=== PATIENT | female | born 1960 | race Caucasian/White ===

== ENCOUNTER → 2024-08-10 | Outpatient (CLI) | payer MEDICAID, SELFPAY ==
--- NOTE | 2024-08-10 08:45 | XR_ITS ---
Examination: Screening digital mammography, bilateral Computer aided detection 3-D breast Tomosynthesis, bilateral Date and time of exam: August 10, 2024 at 0834 hours Compared to mammograms dating to 01/17/2013 Indication: Screening Technique: Nonmagnified MLO, CC views of the breasts to been obtained, reconstructed from 3-D Tomosynthesis images. R2 computer aided detection program utilized for evaluation of suspicious masses and/or abnormal calcifications. 3-D Tomosynthesis images obtained. Findings: Scattered areas of fibroglandular density 3 mm circumscribed nodule outer left breast probably benign Impression: BI-RADS Category 3: Probably benign findings One additional 6 month left mammogram follow-up is needed to document stability of 3 mm nodule upper left breast
== END | disposition home or self-care (01) ==
LOC: CDIM 08:26
PROVIDERS: Referring Provider Physician Assistant; Visit Provider Physician Assistant
DX: Z12.31 Encounter for screening mammogram for malignant neoplasm of breast (principal); R92.333 Mammographic heterogeneous density, bilateral breasts; N63.21 Unspecified lump in the left breast, upper outer quadrant
CPT/HCPCS: 77063; 77067

== ENCOUNTER → 2024-12-17 | Outpatient (CLI) | payer MEDICAID, SELFPAY ==
--- NOTE | 2024-12-17 09:00 | XR_ITS ---
Examination: Gastrografin enema with KUB Fluoroscopy 28 spot fluoroscopic films of the colon Date and time: December 17, 2024 0913 hours INDICATIONS: Left-sided abdominal pain and bloating beginning one year ago TECHNIQUE AND FINDINGS: Colon filled in retrograde manner to the cecum without reflux into the terminal ileum Mild stool is present throughout the colon Scattered diverticula in the sigmoid colon No diverticulitis No constricting colonic lesion No rectal or other ulcerations Evacuation is partial mucosal detail processes satisfactory IMPRESSION: Mild stool is present throughout the colon No constricting colonic lesion
== END | disposition home or self-care (01) ==
PROVIDERS: PCP Physician Assistant; Referring Provider Surgery; Visit Provider Surgery
DX: K59.00 Constipation, unspecified (principal)
CPT/HCPCS: 74280

== ENCOUNTER → 2025-02-26 | Outpatient (CLI) | payer MEDICAID, SELFPAY ==
--- NOTE | 2025-02-26 13:00 | XR_ITS ---
Examination: Breast ultrasound, unilateral, left complete Date and time of exam: February 26, 2025, 1311 hours INDICATIONS: 3 mm nodule upper left breast on mammogram August 10, 2024 Technique: Real-time sams scale ultrasonographic imaging performed left breast including all 4 quadrants as well as nipple retroareolar and axillary region. Findings: Multiple benign cysts 12:00 nodule circumscribed 4 x 4 mm Dilated retroareolar ducts IMPRESSION: BI-RADS Category 2: Benign findings
--- NOTE | 2025-02-26 13:30 | XR_ITS ---
Examination: Diagnostic digital mammography, unilateral, left Computer aided detection 3-D breast Tomosynthesis, unilateral Date and time of exam: 01/27/2025, 1:26 p.m. Comparisons: April 2023 through February 2020 Indications: 5 further evaluation of palpable abnormalities seen on prior screening exam. Technique: Nonmagnified MLO, CC views of the left breast have been obtained, reconstructed from 3-D Tomosynthesis images. R2 computer aided detection program utilized for evaluation of suspicious masses and/or abnormal calcifications. 3-D Tomosynthesis images obtained. Technologist: Findings: There are scattered areas of fibroglandular density. No evidence of suspicious masses or suspicious calcifications. Multiple benign-appearing oval circumscribed masses. Impression: BI-RADS category 2: Benign findings Recommend 1 year follow-up mammogram
== END | disposition home or self-care (01) ==
LOC: CDIM 12:53
PROVIDERS: PCP Physician Assistant; Referring Provider Physician Assistant; Visit Provider Physician Assistant
DX: R92.322 Mammographic fibroglandular density, left breast (principal); N63.20 Unspecified lump in the left breast, unspecified quadrant
CPT/HCPCS: 76641; 77061; 77065; G0279